=== PATIENT | female | born 1940 | race Caucasian/White ===

== ENCOUNTER → 2017-03-21 | Day surgery (SDC) | payer MEDICARE, OTHER ==
[~2017-03-21] MED LIST: Lactated Ringers 1,000 ML IV SCH; Propofol 200 MG/20 ML SDV IV ONE
[2017-03-21 10:35] VITALS: BP 144/77
--- NOTE | 2017-03-25 08:02 | OR ---
DATE OF OPERATION: 03/21/2017 PREOPERATIVE DIAGNOSIS: FAMILY HISTORY OF COLON CANCER. POSTOPERATIVE DIAGNOSIS: FAMILY HISTORY OF COLON CANCER. SURGEON: Victorino Ruiz MD PROCEDURE: FULL-LENGTH COLONOSCOPY WITH SNARE POLYPECTOMY X1. ANESTHESIA: STONE PAVER due to hypertension COMPLICATIONS: None. SPECIMEN: Tubular adenoma, sigmoid colon. FINDINGS: 1. Full-length colonoscopy. 2. Moderate sigmoid diverticulosis. 3. Tubular adenoma, distal sigmoid colon less than 0.5 cm. RECOMMENDATIONS: Follow up colonoscopy in 5 years. INDICATIONS: The patient has a family history of colon cancer in her sister. She is due for a 5-year scope. DESCRIPTION OF PROCEDURE: The patient was prepped and draped, placed in a left lateral decubitus position. A lubricated Olympus colonoscope was inserted and easily advanced to the cecum. Direct visualization of the ileocecal valve and appendiceal orifice was accomplished. Bowel prep was excellent. Upon withdrawal of the scope, the cecum, ascending and transverse colon were completely benign. The patient does have scattered diverticular disease throughout most of the left colon starting in the distal descending area, it is moderate in severity in the mid sigmoid region. There were no signs of any vascular abnormalities, signs of bleeding or colitis. The patient did have 1 small tubular adenoma, at around 35 cm in the distal sigmoid colon. It was removed with a snare and suctioned in a polyp trap #1 without difficulty. The rectal vault was unremarkable. Retroflexion of scope in the rectum showed no perianal lesions. Air was then suctioned. Scope was removed without complication. SHAYNA/PHYLLIS /[id number]
== END ==
LOC: CC.SDS 08:40
PROVIDERS: ATTEND Family Medicine
DX: Z12.11 Encounter for screening for malignant neoplasm of colon (principal); D12.5 Benign neoplasm of sigmoid colon; K57.30 Diverticulosis of large intestine without perforation or abscess without bleeding; Z80.0 Family history of malignant neoplasm of digestive organs; Z88.8 Allergy status to other drugs, medicaments and biological substances; I10 Essential (primary) hypertension; Z79.82 Long term (current) use of aspirin; Z79.899 Other long term (current) drug therapy; Z98.890 Other specified postprocedural states; Z98.51 Tubal ligation status; Z72.0 Tobacco use
CPT/HCPCS: 00810; 45385; 88305; J2704; J7120

== ENCOUNTER 2023-08-18 10:46 | Emergency (ER) | payer MEDICARE, OTHER ==
[2023-08-18 10:58] VITALS: BP 177/86; PULSE 82
[2023-08-18] MEDS: cefTRIAXone 1 GM, Lidocaine 1% 2.1 ML IM SCH ×2 (11:09)
[2023-08-18] MEDS: diphenhydrAMINE 25 MG Cap PO ONE (11:09)
== END 2023-08-18 11:30 | disposition home or self-care (01) ==
LOC: CC.ED 10:46
DX: L03.116 Cellulitis of left lower limb (principal); Z79.82 Long term (current) use of aspirin; Z88.8 Allergy status to other drugs, medicaments and biological substances; Z88.1 Allergy status to other antibiotic agents
CPT/HCPCS: 96372; 99283; A9270-GY; J0696; J3490

== ENCOUNTER 2024-01-30 14:53 | Inpatient (IN) | payer MEDICARE, OTHER ==
[2024-01-30 15:30] LABS: BASOPHILS ABSOLUTE AUTO 0.01 10^3/uL (0.00-0.50); BASOPHILS PERCENT AUTO 0.2 % (0-1); EOSINOPHILS ABSOLUTE AUTO 0.09 10^3/uL (0.00-1.50); EOSINOPHILS PERCENT AUTO 1.4 % (0-6); HEMATOCRIT 38.4 % (37.0-47.0); HEMOGLOBIN 12.5 g/dL (12.0-16.0); IMMATURE GRAN ABSOLUTE AUTO 0.01 10^3/uL (0.00-0.49); IMMATURE GRAN PERCENT AUTO 0.2 % (0.0-4.9); LYMPHOCYTES ABSOLUTE AUTO 1.41 10^3/uL (0.60-5.00); LYMPHOCYTES PERCENT AUTO 22.1 % (24-44); MEAN CORPUSCULAR HEMOGLOBIN 29.3 pg (27.0-32.0); MEAN CORPUSCULAR HGB CONC 32.6 g/dL (32.0-36.0); MEAN CORPUSCULAR VOLUME 89.9 fL (83.0-97.0); MONOCYTES ABSOLUTE AUTO 0.68 10^3/uL (0.00-1.50); MONOCYTES PERCENT AUTO 10.6 % (0-10); NEUTROPHILS ABSOLUTE AUTO 4.19 x10^3/uL (1.80-8.00); NEUTROPHILS PERCENT AUTO 65.5 % (41-71); PLATELET COUNT,PLT 243 10^3/uL (150-400); RED BLOOD CELL COUNT 4.27 x10^6/uL (4.00-5.50); WHITE BLOOD CELL COUNT,WBC 6.4 10^3/uL (4.0-11.0)
[2024-01-30 15:42] LABS: BILIRUBIN TOTAL 0.5 mg/dL (0.0-1.0); C-REACTIVE PROTEIN 2.23 mg/dL (<=0.50); CALCIUM 9.2 mg/dL (8.4-10.1); CREATININE 0.8 mg/dL (0.6-1.0); EST CRCL DRUG DOSING (CG) 49.37 mL/min; MAGNESIUM 2.3 mg/dL (1.8-2.4); PROTEIN TOTAL,TP 6.8 g/dL (6.4-8.2)
[2024-01-30] MEDS: VANCOmycin 1.5 GM/300 ML 1.5 GM in Premix Bag 1 BAG IV ONE (16:58)
[2024-01-30] MEDS ORDERED: Naproxen 500 MG Tab PO PRN (17:03)
[2024-01-30] MEDS ORDERED: Docusate Sodium 100 MG Cap PO PRN (17:03)
[2024-01-30] MEDS ORDERED: Ondansetron 4 MG Tab.DIS PO PRN (17:03)
[2024-01-30] MEDS ORDERED: Ondansetron 4 MG/2 ML SDV IV PRN (17:03)
[2024-01-30] MEDS ORDERED: Polyethylene Glycol 3350 Powder 17 GM Packet PO PRN (17:03)
[2024-01-30] MEDS: Hypromellose 0.3% Ophth Soln 15 ML Bottle EYEBOTH SCH (21:19)
[2024-01-31] MEDS: Calcium Carbonate 500 MG Tab.Chew PO SCH (07:43)
[2024-01-31] MEDS: Potassium Chloride 10 MEQ Tab.ER PO SCH (07:43)
[2024-01-31] MEDS: Furosemide 40 MG Tab PO SCH (07:43)
[2024-01-31] MEDS: Donepezil 5 MG Tab PO SCH (07:44)
[2024-01-31] MEDS: Aspirin 81 MG Tab.EC PO SCH (07:44)
[2024-01-31] MEDS: Losartan 100 MG Tab PO SCH (07:44)
[2024-01-31 08:56] LABS: BASOPHILS ABSOLUTE AUTO 0.01 10^3/uL (0.00-0.50); BASOPHILS PERCENT AUTO 0.1 % (0-1); EOSINOPHILS ABSOLUTE AUTO 0.03 10^3/uL (0.00-1.50); EOSINOPHILS PERCENT AUTO 0.3 % (0-6); HEMATOCRIT 41.5 % (37.0-47.0); HEMOGLOBIN 13.4 g/dL (12.0-16.0); IMMATURE GRAN ABSOLUTE AUTO 0.01 10^3/uL (0.00-0.49); IMMATURE GRAN PERCENT AUTO 0.1 % (0.0-4.9); LYMPHOCYTES ABSOLUTE AUTO 1.18 10^3/uL (0.60-5.00); LYMPHOCYTES PERCENT AUTO 13.6 % (24-44); MEAN CORPUSCULAR HEMOGLOBIN 29.3 pg (27.0-32.0); MEAN CORPUSCULAR HGB CONC 32.3 g/dL (32.0-36.0); MEAN CORPUSCULAR VOLUME 90.6 fL (83.0-97.0); MONOCYTES ABSOLUTE AUTO 0.57 10^3/uL (0.00-1.50); MONOCYTES PERCENT AUTO 6.6 % (0-10); NEUTROPHILS ABSOLUTE AUTO 6.88 x10^3/uL (1.80-8.00); NEUTROPHILS PERCENT AUTO 79.3 % (41-71); PLATELET COUNT,PLT 280 10^3/uL (150-400); RED BLOOD CELL COUNT 4.58 x10^6/uL (4.00-5.50); WHITE BLOOD CELL COUNT,WBC 8.7 10^3/uL (4.0-11.0)
[2024-01-31 09:09] LABS: CALCIUM 8.9 mg/dL (8.4-10.1); CREATININE 0.9 mg/dL (0.6-1.0); EST CRCL DRUG DOSING (CG) 43.37 mL/min; MAGNESIUM 2.1 mg/dL (1.8-2.4); POTASSIUM,K 3.6 mEq/L (3.5-5.0)
[2024-01-31] MEDS: VANCOmycin 1.25 GM/250 ML 1.25 GM in Premix Bag 1 BAG IV SCH (11:18)
[2024-02-01] MEDS: Acetaminophen 325 MG Tab PO PRN (00:44)
[2024-02-01 06:51] LABS: BASOPHILS ABSOLUTE AUTO 0.01 10^3/uL (0.00-0.50); BASOPHILS PERCENT AUTO 0.2 % (0-1); EOSINOPHILS ABSOLUTE AUTO 0.08 10^3/uL (0.00-1.50); EOSINOPHILS PERCENT AUTO 1.4 % (0-6); HEMATOCRIT 36.2 % (37.0-47.0); HEMOGLOBIN 11.5 g/dL (12.0-16.0); LYMPHOCYTES ABSOLUTE AUTO 1.02 10^3/uL (0.60-5.00); LYMPHOCYTES PERCENT AUTO 17.5 % (24-44); MEAN CORPUSCULAR HEMOGLOBIN 28.9 pg (27.0-32.0); MEAN CORPUSCULAR HGB CONC 31.8 g/dL (32.0-36.0); MONOCYTES ABSOLUTE AUTO 0.59 10^3/uL (0.00-1.50); MONOCYTES PERCENT AUTO 10.1 % (0-10); NEUTROPHILS ABSOLUTE AUTO 4.13 x10^3/uL (1.80-8.00); NEUTROPHILS PERCENT AUTO 70.8 % (41-71); PLATELET COUNT,PLT 238 10^3/uL (150-400); RED BLOOD CELL COUNT 3.98 x10^6/uL (4.00-5.50); WHITE BLOOD CELL COUNT,WBC 5.8 10^3/uL (4.0-11.0)
[2024-02-01 06:57] LABS: CALCIUM 8.3 mg/dL (8.4-10.1); CREATININE 0.8 mg/dL (0.6-1.0); EST CRCL DRUG DOSING (CG) 48.79 mL/min; POTASSIUM,K 4.5 mEq/L (3.5-5.0)
[2024-02-02 07:45] VITALS: BP 130/65
[2024-02-02] MEDS: Enoxaparin 40 MG/0.4 ML Syringe SUBCUT SCH (07:45)
[2024-02-02 08:58] VITALS: PULSE 58
[2024-02-02 09:07] LABS: BASOPHILS ABSOLUTE AUTO 0.02 10^3/uL (0.00-0.50); BASOPHILS PERCENT AUTO 0.4 % (0-1); EOSINOPHILS ABSOLUTE AUTO 0.12 10^3/uL (0.00-1.50); EOSINOPHILS PERCENT AUTO 2.2 % (0-6); HEMOGLOBIN 13.4 g/dL (12.0-16.0); IMMATURE GRAN ABSOLUTE AUTO 0.01 10^3/uL (0.00-0.49); IMMATURE GRAN PERCENT AUTO 0.2 % (0.0-4.9); LYMPHOCYTES ABSOLUTE AUTO 1.06 10^3/uL (0.60-5.00); LYMPHOCYTES PERCENT AUTO 19.4 % (24-44); MEAN CORPUSCULAR HEMOGLOBIN 28.7 pg (27.0-32.0); MEAN CORPUSCULAR HGB CONC 31.9 g/dL (32.0-36.0); MEAN CORPUSCULAR VOLUME 89.9 fL (83.0-97.0); MONOCYTES ABSOLUTE AUTO 0.31 10^3/uL (0.00-1.50); MONOCYTES PERCENT AUTO 5.7 % (0-10); NEUTROPHILS ABSOLUTE AUTO 3.94 x10^3/uL (1.80-8.00); NEUTROPHILS PERCENT AUTO 72.1 % (41-71); PLATELET COUNT,PLT 287 10^3/uL (150-400); RED BLOOD CELL COUNT 4.67 x10^6/uL (4.00-5.50); WHITE BLOOD CELL COUNT,WBC 5.5 10^3/uL (4.0-11.0)
[2024-02-02 09:19] LABS: ALBUMIN 2.6 g/dL (3.4-5.0); BILIRUBIN TOTAL 0.5 mg/dL (0.0-1.0); CALCIUM 8.7 mg/dL (8.4-10.1); CREATININE 0.9 mg/dL (0.6-1.0); EST CRCL DRUG DOSING (CG) 43.37 mL/min; POTASSIUM,K 3.8 mEq/L (3.5-5.0); PROTEIN TOTAL,TP 6.5 g/dL (6.4-8.2)
[2024-02-02] MEDS ORDERED: Cefepime 1 GM in Sodium Chloride 0.9% 100 ML IV ONE (16:00)
[2024-02-03] MEDS ORDERED: Cefepime 1 GM in Sodium Chloride 0.9% 100 ML IV SCH (08:00)
== END 2024-02-02 14:32 | disposition swing bed (61) | DRG 603 ==
LOC: CC.ED 14:53 → CC.MS 16:16 → UNDOADMIN 16:34
PROVIDERS: ADMIT Nurse Practitioner; ATTEND Nurse Practitioner
DX: L03.116 Cellulitis of left lower limb (principal); Z78.9 Other specified health status; L97.929 Non-pressure chronic ulcer of unspecified part of left lower leg with unspecified severity; I87.8 Other specified disorders of veins; Z88.8 Allergy status to other drugs, medicaments and biological substances; Z79.82 Long term (current) use of aspirin; Z79.899 Other long term (current) drug therapy; Z91.199 Patient's noncompliance with other medical treatment and regimen due to unspecified reason
CPT/HCPCS: 29580-GP; 36415; 80048; 80053; 80202; 83605; 83735; 85025; 86140; 87040; 87070; 87077; 87186; 87205; 99223; 99232; 99233; 99238; 99284; A9270-GY; J1650; J3372

== ENCOUNTER 2024-02-02 14:38 | Inpatient (IN) | payer MEDICARE, OTHER ==
[2024-02-02] MEDS ORDERED: Polyethylene Glycol 3350 Powder 17 GM Packet PO PRN (14:51)
[2024-02-02] MEDS ORDERED: Acetaminophen 325 MG Tab PO PRN (14:51)
[2024-02-02] MEDS ORDERED: Naproxen 500 MG Tab PO PRN (14:51)
[2024-02-02] MEDS ORDERED: Ondansetron 4 MG/2 ML SDV IV PRN (14:51)
[2024-02-02] MEDS ORDERED: Docusate Sodium 100 MG Cap PO PRN (14:51)
[2024-02-02] MEDS: Hypromellose 0.3% Ophth Soln 15 ML Bottle EYEBOTH SCH (16:03)
[2024-02-02] MEDS: Cefepime 1 GM in Sodium Chloride 0.9% 100 ML IV ONE (16:03)
[2024-02-03] MEDS: Enoxaparin 40 MG/0.4 ML Syringe SUBCUT SCH (07:14)
[2024-02-03] MEDS: Potassium Chloride 10 MEQ Tab.ER PO SCH (07:14)
[2024-02-03] MEDS: Aspirin 81 MG Tab.EC PO SCH (07:15)
[2024-02-03] MEDS: Furosemide 40 MG Tab PO SCH (07:15)
[2024-02-03] MEDS: Donepezil 5 MG Tab PO SCH (07:15)
[2024-02-03] MEDS: Losartan 100 MG Tab PO SCH (07:15)
[2024-02-03] MEDS: Cefepime 1 GM in Sodium Chloride 0.9% 100 ML IV SCH (07:21)
[2024-02-03] MEDS ORDERED: Calcium Carbonate 500 MG Tab.Chew PO SCH (08:00)
[2024-02-03] MEDS: VANCOmycin 1.25 GM/250 ML 1.25 GM in Premix Bag 1 BAG IV SCH (11:18)
[2024-02-03] MEDS: diphenhydrAMINE 25 MG Cap PO PRN (14:39)
[2024-02-04] MEDS: Doxycycline Monohydrate 100 MG Cap PO SCH (11:24)
[2024-02-05] MEDS: Ondansetron 4 MG Tab.DIS PO PRN (18:34)
[2024-02-05 22:26] VITALS: BP 128/66; PULSE 59
== END 2024-02-06 11:30 | disposition home health service (06) | DRG 948 ==
LOC: CC.MS 14:38 → UNDOADMIN 14:38 → CC.MS 14:51
PROVIDERS: ADMIT Nurse Practitioner; ATTEND Nurse Practitioner
DX: R53.81 Other malaise (principal); L03.116 Cellulitis of left lower limb
CPT/HCPCS: 97110-GP; 97161-GP; A9270-GY; J0692; J1650; J3372; J3490

== ENCOUNTER → 2025-02-08 | Day surgery (SDC) | payer MEDICARE, OTHER ==
[2025-02-08 13:09] VITALS: BP 168/81
== END ==
LOC: CC.SDS 11:24
PROVIDERS: ATTEND Family Medicine
DX: I83.813 Varicose veins of bilateral lower extremities with pain (principal); Z88.8 Allergy status to other drugs, medicaments and biological substances; Z79.899 Other long term (current) drug therapy
CPT/HCPCS: 36482; 36483; C1888; J2003

== ENCOUNTER 2025-02-22 15:37 | Inpatient (IN) | payer MEDICARE, OTHER ==
[2025-02-22 16:33] LABS: ALANINE AMINOTRANSFERASE,ALT 23 U/L (12-78); ASPARTATE AMNIOTRANSFERASE,AST 18 U/L (15-37); BILIRUBIN TOTAL 0.7 mg/dL (0.0-1.0); BLOOD UREA NITROGEN,BUN 19 mg/dL (7-18); CARBON DIOXIDE,CO2 30 mmol/L (21-32); CHLORIDE,CL 107 mEq/L (98-106); CREATININE 0.8 mg/dL (0.6-1.0); GLUCOSE RANDOM 120 mg/dL (75-99); POTASSIUM,K 3.3 mEq/L (3.5-5.0); PROTEIN TOTAL,TP 6.7 g/dL (6.4-8.2); SODIUM,NA 145 mEq/L (136-145)
[2025-02-22 16:43] LABS: ESTIMATED GFR 73 mL/min (>=60)
[2025-02-22] MEDS ORDERED: Sodium Chloride 0.9% 10 ML Syringe FLUSH PRN (17:05)
[2025-02-22] MEDS ORDERED: Ondansetron 4 MG/2 ML SDV IV PRN (17:05)
[2025-02-22] MEDS ORDERED: Ondansetron 4 MG Tab.DIS PO PRN (17:05)
[2025-02-22] MEDS: VANCOmycin 1 GM/200 ML 1 GM in Premix Bag 1 BAG IV SCH (18:53)
[2025-02-22] MEDS: Potassium Chloride 20 MEQ Tab.ER PO ONE (21:12)
[2025-02-23 07:48] LABS: BASOPHILS ABSOLUTE AUTO 0.02 10^3/uL (0.00-0.50); BASOPHILS PERCENT AUTO 0.3 % (0-1); EOSINOPHILS ABSOLUTE AUTO 0.06 10^3/uL (0.00-1.50); EOSINOPHILS PERCENT AUTO 1.0 % (0-6); IMMATURE GRAN ABSOLUTE AUTO 0.01 10^3/uL (0.00-0.49); IMMATURE GRAN PERCENT AUTO 0.2 % (0.0-4.9); LYMPHOCYTES ABSOLUTE AUTO 1.10 10^3/uL (0.60-5.00); LYMPHOCYTES PERCENT AUTO 18.7 % (24-44); MONOCYTES ABSOLUTE AUTO 0.52 10^3/uL (0.00-1.50); MONOCYTES PERCENT AUTO 8.9 % (0-10); NEUTROPHILS ABSOLUTE AUTO 4.16 x10^3/uL (1.80-8.00); NEUTROPHILS PERCENT AUTO 70.9 % (41-71); PLATELET COUNT,PLT 229 10^3/uL (150-400); RED BLOOD CELL COUNT 3.94 x10^6/uL (4.00-5.50); WHITE BLOOD CELL COUNT,WBC 5.9 10^3/uL (4.0-11.0)
[2025-02-23] MEDS: Potassium Chloride 10 MEQ Tab.ER PO SCH (07:51)
[2025-02-23] MEDS: Lactobacillus Rhamnosus GG (Probiotic) Cap PO SCH (07:51)
[2025-02-23 09:38] LABS: ALANINE AMINOTRANSFERASE,ALT 19.0 U/L (12-78); ASPARTATE AMNIOTRANSFERASE,AST 14.0 U/L (15-37); BILIRUBIN TOTAL 0.8 mg/dL (0.0-1.0); BLOOD UREA NITROGEN,BUN 12.0 mg/dL (7-18); CARBON DIOXIDE,CO2 26.0 mmol/L (21-32); CHLORIDE,CL 109.0 mEq/L (98-106); CREATININE 0.6 mg/dL (0.6-1.0); EST CRCL DRUG DOSING (CG) 62.42 mL/min; GLUCOSE RANDOM 99.0 mg/dL (75-99); POTASSIUM,K 3.8 mEq/L (3.5-5.0); PROTEIN TOTAL,TP 5.9 g/dL (6.4-8.2); SODIUM,NA 142.0 mEq/L (136-145)
[2025-02-23 09:40] LABS: ESTIMATED GFR 89.0 mL/min (>=60)
[2025-02-23] MEDS: Hypromellose 0.3% Ophth Soln 15 ML Bottle EYEBOTH SCH (13:11)
[2025-02-23] MEDS: VANCOmycin 1.5 GM/300 ML 1.5 GM in Premix Bag 1 BAG IV ONE (14:14)
[2025-02-24 07:49] LABS: BASOPHILS ABSOLUTE AUTO 0.02 10^3/uL (0.00-0.50); BASOPHILS PERCENT AUTO 0.4 % (0-1); EOSINOPHILS ABSOLUTE AUTO 0.06 10^3/uL (0.00-1.50); EOSINOPHILS PERCENT AUTO 1.1 % (0-6); IMMATURE GRAN ABSOLUTE AUTO 0.01 10^3/uL (0.00-0.49); IMMATURE GRAN PERCENT AUTO 0.2 % (0.0-4.9); LYMPHOCYTES ABSOLUTE AUTO 0.85 10^3/uL (0.60-5.00); LYMPHOCYTES PERCENT AUTO 15.0 % (24-44); MONOCYTES ABSOLUTE AUTO 0.47 10^3/uL (0.00-1.50); MONOCYTES PERCENT AUTO 8.3 % (0-10); NEUTROPHILS ABSOLUTE AUTO 4.26 x10^3/uL (1.80-8.00); NEUTROPHILS PERCENT AUTO 75.0 % (41-71); PLATELET COUNT,PLT 245 10^3/uL (150-400); RED BLOOD CELL COUNT 4.02 x10^6/uL (4.00-5.50); WHITE BLOOD CELL COUNT,WBC 5.7 10^3/uL (4.0-11.0)
[2025-02-24 08:13] LABS: ALANINE AMINOTRANSFERASE,ALT 22.0 U/L (12-78); ASPARTATE AMNIOTRANSFERASE,AST 16.0 U/L (15-37); BILIRUBIN TOTAL 0.7 mg/dL (0.0-1.0); BLOOD UREA NITROGEN,BUN 14.0 mg/dL (7-18); CARBON DIOXIDE,CO2 28.0 mmol/L (21-32); CHLORIDE,CL 107.0 mEq/L (98-106); CREATININE 0.7 mg/dL (0.6-1.0); EST CRCL DRUG DOSING (CG) 53.5 mL/min; GLUCOSE RANDOM 108.0 mg/dL (75-99); POTASSIUM,K 3.8 mEq/L (3.5-5.0); PROTEIN TOTAL,TP 5.6 g/dL (6.4-8.2); SODIUM,NA 142.0 mEq/L (136-145)
[2025-02-24 08:17] LABS: ESTIMATED GFR 86.0 mL/min (>=60)
[2025-02-24] MEDS: VANCOmycin 1.5 GM/300 ML 1.5 GM in Premix Bag 1 BAG IV SCH (11:21)
[2025-02-25 07:37] VITALS: BP 135/64; PULSE 51
[2025-02-25 07:56] LABS: BASOPHILS ABSOLUTE AUTO 0.02 10^3/uL (0.00-0.50); BASOPHILS PERCENT AUTO 0.4 % (0-1); EOSINOPHILS ABSOLUTE AUTO 0.07 10^3/uL (0.00-1.50); EOSINOPHILS PERCENT AUTO 1.3 % (0-6); IMMATURE GRAN ABSOLUTE AUTO 0.01 10^3/uL (0.00-0.49); IMMATURE GRAN PERCENT AUTO 0.2 % (0.0-4.9); LYMPHOCYTES ABSOLUTE AUTO 1.15 10^3/uL (0.60-5.00); LYMPHOCYTES PERCENT AUTO 22.2 % (24-44); MONOCYTES ABSOLUTE AUTO 0.42 10^3/uL (0.00-1.50); MONOCYTES PERCENT AUTO 8.1 % (0-10); NEUTROPHILS ABSOLUTE AUTO 3.52 x10^3/uL (1.80-8.00); NEUTROPHILS PERCENT AUTO 67.8 % (41-71); PLATELET COUNT,PLT 257 10^3/uL (150-400); RED BLOOD CELL COUNT 4.17 x10^6/uL (4.00-5.50); WHITE BLOOD CELL COUNT,WBC 5.2 10^3/uL (4.0-11.0)
[2025-02-25 08:14] LABS: ALANINE AMINOTRANSFERASE,ALT 18.0 U/L (12-78); ASPARTATE AMNIOTRANSFERASE,AST 13.0 U/L (15-37); BILIRUBIN TOTAL 0.4 mg/dL (0.0-1.0); BLOOD UREA NITROGEN,BUN 22.0 mg/dL (7-18); CARBON DIOXIDE,CO2 31.0 mmol/L (21-32); CHLORIDE,CL 107.0 mEq/L (98-106); CREATININE 0.8 mg/dL (0.6-1.0); EST CRCL DRUG DOSING (CG) 46.81 mL/min; GLUCOSE RANDOM 98.0 mg/dL (75-99); POTASSIUM,K 3.9 mEq/L (3.5-5.0); PROTEIN TOTAL,TP 6.2 g/dL (6.4-8.2); SODIUM,NA 142.0 mEq/L (136-145)
[2025-02-25 08:25] LABS: ESTIMATED GFR 73.0 mL/min (>=60)
== END 2025-02-25 12:07 | disposition swing bed (61) | DRG 603 ==
LOC: UNDOADMIN 15:37 → CC.MS 15:37
PROVIDERS: ADMIT Nurse Practitioner Family; ATTEND Nurse Practitioner Family
DX: L03.115 Cellulitis of right lower limb (principal); L97.929 Non-pressure chronic ulcer of unspecified part of left lower leg with unspecified severity; L03.116 Cellulitis of left lower limb; I11.0 Hypertensive heart disease with heart failure; I50.9 Heart failure, unspecified; F03.A0 Unspecified dementia, mild, without behavioral disturbance, psychotic disturbance, mood disturbance, and anxiety; E87.6 Hypokalemia; B95.61 Methicillin susceptible Staphylococcus aureus infection as the cause of diseases classified elsewhere; Z88.8 Allergy status to other drugs, medicaments and biological substances; Z88.5 Allergy status to narcotic agent; Z79.82 Long term (current) use of aspirin; Z79.899 Other long term (current) drug therapy
CPT/HCPCS: 36415; 80053; 80202; 85025; 86140; 87040; 87070; 87077; 87186; 97110-GP; 97161-GP; 97530-GP; 99223; 99232; 99233; 99238; A9270-GY; J0692; J1650; J3375